=== PATIENT | male | born 1970 | race Caucasian/White ===

== ENCOUNTER 2017-02-24 07:38 | Day surgery (SDC) | payer OTHER ==
[2017-02-24] MEDS ORDERED: Dextrose 5%-Lactated Ringers 1,000 ML IV SCH (08:15)
[2017-02-24] MEDS ORDERED: Midazolam 1 MG/ML 2 ML SDV ONE (08:37)
[2017-02-24] MEDS ORDERED: Propofol 200 MG/20 ML SDV ONE (08:37)
[2017-02-24] MEDS ORDERED: fentaNYL 100 MCG/2 ML SDV ONE ×2 (08:37→10:19)
[2017-02-24] MEDS ORDERED: Glycopyrrolate 0.2 MG/ML 2 ML SYRINGE IVPUSH ONE (09:00)
[2017-02-24 11:33] VITALS: BP 123/74
--- NOTE | 2017-03-02 13:54 | OR ---
DATE OF PROCEDURE: 02/24/2017 PREOPERATIVE DIAGNOSIS: Gastroesophageal reflux disease. POSTOPERATIVE DIAGNOSIS: Active gastroesophageal reflux disease with free reflux of gastric contents into the esophagus. OPERATIVE PROCEDURE: Esophagogastroduodenoscopy with: 1. Biopsies of esophagogastric junction for histologic evaluation. 2. Biopsies of antrum for CLOtest for screening for H. pylori. ANESTHESIA: IV sedation. INDICATION FOR PROCEDURE: This is a 46-year-old male presenting with increasingly symptomatic gastroesophageal reflux disease. He was started on omeprazole on 02/11/2017 and feels this may be helping somewhat, but still having more or less, free reflux. Plan is to proceed with upper GI endoscopy with biopsies as indicated. Potential risks including bleeding and perforation were discussed, and the patient wishes to proceed. DETAILS OF PROCEDURE: The patient was taken to the operating room and placed in a left lateral decubitus position. IV sedation was administered, after which the upper GI endoscope was passed orally through the length of the esophagus into the stomach with retroflexion view of the fundus, through the pyloric channel and into the proximal duodenum. Findings included a normal hypopharynx, larynx, upper esophageal sphincter, and esophageal body. At the EG junction, there was a small hiatal hernia with quite active gastroesophageal reflux disease, with that area being friable, somewhat edematous and reddened. There was more or less a wide open esophagogastric junction with free reflux of gastric contents noted to come up into the esophagus during the exam. The proximal stomach was otherwise unremarkable. There was no real gastritis present within the antrum, and the pyloric channel and duodenum and junction of the third and fourth portions were unremarkable. At this point, biopsies were obtained from the antrum and screened for H. pylori and then multiple biopsies were obtained from esophagogastric junction, sent for histologic evaluation. Minimal bleeding from the biopsy sites was seen and the procedure then concluded. The patient was taken to the recovery room in satisfactory condition. Lucius Brink MD /[id number]
== END 2017-02-24 11:55 | disposition home or self-care (01) ==
LOC: JP.SDS 07:38
PROVIDERS: ATTEND Surgery
DX: K44.9 Diaphragmatic hernia without obstruction or gangrene (principal); K21.9 Gastro-esophageal reflux disease without esophagitis
CPT/HCPCS: 43239; 87081; J2250; J2704; J3010; J7042; 88305

== ENCOUNTER 2022-01-31 07:54 | Day surgery (SDC) | payer OTHER ==
[2022-01-31] MEDS ORDERED: fentaNYL 100 MCG/2 ML SDV ONE (08:41)
[2022-01-31] MEDS ORDERED: Dextrose 5%-Lactated Ringers 1,000 ML IV SCH (09:00)
[2022-01-31] MEDS ORDERED: Propofol 200 MG/20 ML SDV ONE (09:14)
[2022-01-31 10:07] VITALS: PULSE 56
[2022-01-31 10:13] VITALS: BP 118/74
== END 2022-01-31 10:25 | disposition home or self-care (01) ==
LOC: JP.SDS 07:54
PROVIDERS: ATTEND Surgery
DX: Z12.11 Encounter for screening for malignant neoplasm of colon (principal); K57.30 Diverticulosis of large intestine without perforation or abscess without bleeding; K21.9 Gastro-esophageal reflux disease without esophagitis; I12.9 Hypertensive chronic kidney disease with stage 1 through stage 4 chronic kidney disease, or unspecified chronic kidney disease; N18.30 Chronic kidney disease, stage 3 unspecified; Z80.0 Family history of malignant neoplasm of digestive organs; Z88.7 Allergy status to serum and vaccine
CPT/HCPCS: J2704; J3010; J7121